=== PATIENT | female | born 1930 | race Caucasian/White ===

== ENCOUNTER → 2018-02-18 | Outpatient (CLI) | payer MEDICARE, OTHER ==
[2018-02-18 10:04] LABS: ABSOLUTE EOSINOPHILS # (AUTO) 0.2 10^3/uL (0.0-0.6); ABSOLUTE LYMPHOCYTES (AUTO) 1.5 10^3/uL (0.5-4.7); ABSOLUTE MONOCYTES (AUTO) 0.6 10^3/uL (0.1-1.4); ABSOLUTE NEUT (AUTO) 4.6 10^3/uL (1.7-8.2); BASOPHILS % (AUTO) 0.7 % (0-2); EOSINOPHILS % (AUTO) 3.6 % (0-6); HEMATOCRIT 39.5 % (36.0-47.0); HEMOGLOBIN 13.6 g/dL (12.0-15.5); MEAN CORPUSCULAR HEMOGLOBIN 31.5 pg (27.0-33.4); MEAN CORPUSCULAR HGB CONC 34.5 g/dL (32.0-36.0); MEAN CORPUSCULAR VOLUME 91 fl (80-97); MONOCYTES % (AUTO) 8.4 % (3-13); PLATELET COUNT 196 10^3/uL (150-450); RED BLOOD COUNT 4.33 10^6/uL (3.72-5.28); RED CELL DISTRIBUTION WIDTH 13.8 % (11.5-14.0); SEGMENTED NEUTROPHILS % (AUTO) 66.3 % (42-78); TOTAL CELLS COUNTED % (AUTO) 100 %; WHITE BLOOD COUNT 6.9 10^3/uL (4.0-10.5)
[2018-02-18 10:36] LABS: ALANINE AMINOTRANSFERASE 22 U/L (9-52); ALBUMIN 4.4 g/dL (3.5-5.0); ALKALINE PHOSPHATASE 47 U/L (38-126); ANION GAP 13 (5-19); ASPARTATE AMINO TRANSFERASE 23 U/L (14-36); BILIRUBIN,DIRECT 0.4 mg/dL (0.0-0.4); BILIRUBIN,TOTAL 0.7 mg/dL (0.2-1.3); BLOOD UREA NITROGEN 35 mg/dL (7-20); CALCIUM 10.9 mg/dL (8.4-10.2); CARBON DIOXIDE 29 mmol/L (22-30); CHLORIDE 98 mmol/L (98-107); GLUCOSE 99 mg/dL (75-110); POTASSIUM 4.3 mmol/L (3.6-5.0); SODIUM 140.3 mmol/L (137-145); TOTAL PROTEIN 7.3 g/dL (6.3-8.2)
== END ==
LOC: OD 08:52
PROVIDERS: ATTEND Family Medicine
DX: I10 Essential (primary) hypertension (principal); Z79.899 Other long term (current) drug therapy
CPT/HCPCS: 36415; 80053; 85025

== ENCOUNTER → 2018-09-21 | Outpatient (CLI) | payer MEDICARE, OTHER ==
[2018-09-21 09:45] LABS: ABSOLUTE BASOPHILS # (AUTO) 0.1 10^3/uL (0.0-0.2); ABSOLUTE EOSINOPHILS # (AUTO) 0.3 10^3/uL (0.0-0.6); ABSOLUTE LYMPHOCYTES (AUTO) 1.4 10^3/uL (0.5-4.7); ABSOLUTE MONOCYTES (AUTO) 0.7 10^3/uL (0.1-1.4); BASOPHILS % (AUTO) 0.7 % (0-2); EOSINOPHILS % (AUTO) 3.9 % (0-6); HEMATOCRIT 37.2 % (36.0-47.0); HEMOGLOBIN 12.4 g/dL (12.0-15.5); LYMPHOCYTES % (AUTO) 18.6 % (13-45); MEAN CORPUSCULAR HEMOGLOBIN 29.9 pg (27.0-33.4); MEAN CORPUSCULAR HGB CONC 33.4 g/dL (32.0-36.0); MEAN CORPUSCULAR VOLUME 90 fl (80-97); MONOCYTES % (AUTO) 9.2 % (3-13); PLATELET COUNT 214 10^3/uL (150-450); RED BLOOD COUNT 4.16 10^6/uL (3.72-5.28); RED CELL DISTRIBUTION WIDTH 14.7 % (11.5-14.0); SEGMENTED NEUTROPHILS % (AUTO) 67.6 % (42-78); TOTAL CELLS COUNTED % (AUTO) 100 %; WHITE BLOOD COUNT 7.4 10^3/uL (4.0-10.5)
[2018-09-21 09:58] LABS: ANION GAP 7 (5-19); BLOOD UREA NITROGEN 29 mg/dL (7-20); CARBON DIOXIDE 31 mmol/L (22-30); CHLORIDE 100 mmol/L (98-107); GLUCOSE 93 mg/dL (75-110); IRON(TIBC) 64.6 ug/dL (37-170); POTASSIUM 4.3 mmol/L (3.6-5.0); SODIUM 138.4 mmol/L (137-145)
== END ==
LOC: OD 08:30
PROVIDERS: ATTEND Family Medicine
DX: D62 Acute posthemorrhagic anemia (principal); R53.83 Other fatigue; I10 Essential (primary) hypertension
CPT/HCPCS: 36415; 80048; 82607; 82728; 83540; 83550; 85025

== ENCOUNTER → 2019-02-22 | Outpatient (CLI) | payer MEDICARE, OTHER ==
--- NOTE | 2019-02-22 15:27 | RADIOLOGY REPORT (SQ) ---
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 NUMBER OF VIEWS: Two views. TECHNIQUE: Two radiographic images acquired of the left tibia and fibula to include the knee and ank le in at least one projection. LIMITATIONS: None. FINDINGS: MINERALIZATION: Normal. BONES: No acute fracture or dislocation. No worrisome bone lesions. SOFT TISSUES: No obvious swelling or foreign body. OTHER: There is vascular calcification. IMPRESSION: Vascular calcification. No evidence of osteomyelitis. TECHNICAL DOCUMENTATION: JOB ID: [id number] [employer]- All Rights Reserved Reading location - IP/workstation name: [email or web address]
[2019-02-22 15:54] LABS: ABSOLUTE BASOPHILS # (AUTO) 0.1 10^3/uL (0.0-0.2); ABSOLUTE EOSINOPHILS # (AUTO) 0.2 10^3/uL (0.0-0.6); ABSOLUTE LYMPHOCYTES (AUTO) 1.5 10^3/uL (0.5-4.7); ABSOLUTE NEUT (AUTO) 6.4 10^3/uL (1.7-8.2); BASOPHILS % (AUTO) 0.8 % (0-2); HEMOGLOBIN 11.8 g/dL (12.0-15.5); LYMPHOCYTES % (AUTO) 16.4 % (13-45); MEAN CORPUSCULAR HEMOGLOBIN 29.5 pg (27.0-33.4); MEAN CORPUSCULAR HGB CONC 33.8 g/dL (32.0-36.0); MEAN CORPUSCULAR VOLUME 87 fl (80-97); MONOCYTES % (AUTO) 11.3 % (3-13); PLATELET COUNT 250 10^3/uL (150-450); RED BLOOD COUNT 4.01 10^6/uL (3.72-5.28); RED CELL DISTRIBUTION WIDTH 13.3 % (11.5-14.0); SEGMENTED NEUTROPHILS % (AUTO) 69.5 % (42-78); TOTAL CELLS COUNTED % (AUTO) 100 %; WHITE BLOOD COUNT 9.2 10^3/uL (4.0-10.5)
[2019-02-22 16:41] LABS: ALKALINE PHOSPHATASE 59 U/L (38-126); ANION GAP 12 (5-19); ASPARTATE AMINO TRANSFERASE 26 U/L (14-36); BILIRUBIN,DIRECT 0.1 mg/dL (0.0-0.4); BILIRUBIN,TOTAL 0.3 mg/dL (0.2-1.3); BLOOD UREA NITROGEN 33 mg/dL (7-20); C-REACTIVE PROTEIN 8.5 mg/L (<10.0); CALCIUM 9.7 mg/dL (8.4-10.2); CARBON DIOXIDE 29 mmol/L (22-30); CHLORIDE 94 mmol/L (98-107); GLUCOSE 109 mg/dL (75-110); POTASSIUM 3.7 mmol/L (3.6-5.0)
[2019-02-22 16:48] LABS: ERYTHROCYTE SEDIMENTATION RATE 14 mm/hr (0-30)
== END ==
LOC: WC 14:56
PROVIDERS: ATTEND Nurse Practitioner Family
DX: L97.222 Non-pressure chronic ulcer of left calf with fat layer exposed (principal)
CPT/HCPCS: 36415; 80053; 85025; 85652; 86140

== ENCOUNTER → 2019-02-24 | Outpatient (CLI) | payer MEDICARE, OTHER ==
--- NOTE | 2019-02-25 16:19 | XCELERA REPORT ---
[address] [place] [address] Lower Extremity Arterial Evaluation Name: HORTENSIA RUBIO V Age: 89 yrs Gender: Female : 1930 Patient Status: Outpatient Patient Location: [facility] Study Date: 02/24/2019 11:35 AM Procedure: A color flow and duplex scan of the lower extremity arteries was performed bilaterally with velocity and waveform anaylsis. Ankle brachial indicies performed. 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 Biphasic with low velocity in the Popliteal and infrageniculate arteries. Flow reversal in the Anterior Tibial. Ankle Brachial index 1.16. Left Side Arterial Evaluation Normal velocity and biphasic waveforms noted from the Common Femoral artery to the Popliteal artery . Biphasic with low velocity in the infrageniculate arteries. Study done around bandaging Ankle Brachial index could not be done due to bandaging. Interpretation Summary Moderate hemodynamically significant lesions in the bilateral lower extremities, on duplex imaging, at rest. Duplex findings of significant disease from the Femoral down with suspicion of obstruction, collateral flow in the Anterior Tibial artery. On the left, significant inflow disease, with sequential changes at the infrageniculate level. BRUCE on the left is normal, suggesting no significant obstructive disease, this is discordant with the duplex findings. BRUCE's not done the left, because of bandaging. : [facility] > David Chi
== END ==
LOC: SP 10:55
PROVIDERS: ATTEND Nurse Practitioner Family
DX: L97.222 Non-pressure chronic ulcer of left calf with fat layer exposed (principal)
CPT/HCPCS: 93922; 93925

== ENCOUNTER 2019-03-04 14:16 | Inpatient (IN) | payer MEDICARE, OTHER ==
[2019-03-04] MEDS ORDERED: VANCOMYCIN HCL INJ 1000 MG VIAL IV ONE (15:42)
[2019-03-04] MEDS ORDERED: CEFTRIAXONE 1 GM/D5W RTU 1 GM/50 ML RTUPB IV ONE (15:42)
--- NOTE | 2019-03-04 15:45 | ER Document Report ---
ED Medical Screen (RME) - General Stated Complaint: LEFT LEG PAIN/INJURY Time Seen by Provider: 03/04/19 15:42 Primary Care Provider: [facility] TEA BLENDER, TEA BLENDER [Primary Care Provider] - Follow up as needed TRAVEL OUTSIDE OF THE [place] IN LAST 30 DAYS: No - HPI Notes: 03/04/19 15:43 Patient is an 89-year-old female with history of hypertension who presents complaining of ongoing pain and discomfort at a chronic wound to her left anterior lower leg that is been present for 2 months. Patient has been seeing the wound clinic who is going to refer her back to the surgical center. Her family doctor saw it today and the wound has not been improving so they sent her here for IV antibiotics and evaluation. Patient states that she continues to have pain and redness to the area. Patient states that they did a Doppler for blood clots about a week ago which was unremarkable. She is otherwise able to eat and drink without difficulty. No fever. I have treated and performed a rapid initial assessment of this patient. A comprehensive ED assessment and evaluation of the patient, analysis of test results and completion of medical decision making process will be conducted by additional ED providers. PHYSICAL EXAMINATION: GENERAL: Well-appearing, well-nourished and in no acute distress. A&Ox4. Answers questions appropriately. Left lower extremity: There is an open wound to the left lower extremity a nteriorly with surrounding erythema and tenderness as well as trace edema. 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
--- NOTE | 2019-03-04 16:33 | RADIOLOGY REPORT (SQ) ---
EXAM DESCRIPTION: TIBIA FIBULA LEFT COMPLETED DATE/TIME: 03/04/2019 4:24 pm REASON FOR STUDY: LLE wound, eval ?osteo to anterior lower leg COMPARISON: None. NUMBER OF VIEWS: Two views. TECHNIQUE: Two radiographic images acquired of the left tibia and fibula to include the knee and ank le in at least one projection. LIMITATIONS: None. FINDINGS: MINERALIZATION: Normal. BONES: No acute fracture or dislocation. No worrisome bone lesions. Postsurgical changes involving the patella. This is stable from prior study. SOFT TISSUES: No obvious swelling or foreign body. OTHER: No other significant finding. IMPRESSION: No acute findings. TECHNICAL DOCUMENTATION: JOB ID: [id number] [employer]- All Rights Reserved Reading location - IP/workstation name: [email or web address]
[2019-03-04 16:47] LABS: ABSOLUTE BASOPHILS # (AUTO) 0.1 10^3/uL (0.0-0.2); ABSOLUTE EOSINOPHILS # (AUTO) 0.2 10^3/uL (0.0-0.6); ABSOLUTE LYMPHOCYTES (AUTO) 1.6 10^3/uL (0.5-4.7); ABSOLUTE MONOCYTES (AUTO) 0.9 10^3/uL (0.1-1.4); ABSOLUTE NEUT (AUTO) 6.1 10^3/uL (1.7-8.2); BASOPHILS % (AUTO) 0.6 % (0-2); EOSINOPHILS % (AUTO) 1.8 % (0-6); HEMATOCRIT 34.8 % (36.0-47.0); HEMOGLOBIN 11.7 g/dL (12.0-15.5); LYMPHOCYTES % (AUTO) 18.1 % (13-45); MEAN CORPUSCULAR HEMOGLOBIN 29.3 pg (27.0-33.4); MEAN CORPUSCULAR HGB CONC 33.6 g/dL (32.0-36.0); MEAN CORPUSCULAR VOLUME 87 fl (80-97); MONOCYTES % (AUTO) 9.8 % (3-13); PLATELET COUNT 268 10^3/uL (150-450); RED BLOOD COUNT 3.98 10^6/uL (3.72-5.28); RED CELL DISTRIBUTION WIDTH 13.5 % (11.5-14.0); SEGMENTED NEUTROPHILS % (AUTO) 69.7 % (42-78); TOTAL CELLS COUNTED % (AUTO) 100 %; WHITE BLOOD COUNT 8.8 10^3/uL (4.0-10.5)
[2019-03-04 17:08] LABS: ALKALINE PHOSPHATASE 61 U/L (38-126); ASPARTATE AMINO TRANSFERASE 27 U/L (14-36); BILIRUBIN,DIRECT 0.1 mg/dL (0.0-0.4); BILIRUBIN,TOTAL 0.3 mg/dL (0.2-1.3); BLOOD UREA NITROGEN 25 mg/dL (7-20); CALCIUM 10.5 mg/dL (8.4-10.2); CARBON DIOXIDE 29 mmol/L (22-30); CHLORIDE 89 mmol/L (98-107); GLUCOSE 129 mg/dL (75-110); POTASSIUM 3.7 mmol/L (3.6-5.0); TOTAL PROTEIN 7.1 g/dL (6.3-8.2)
[2019-03-04 17:10] LABS: ANION GAP 13 (5-19)
[2019-03-04] MEDS ORDERED: MORPHINE SULFATE 10 MG/ML INJ IV ONE (18:36)
[2019-03-04] MEDS ORDERED: ONDANSETRON HCL INJ/PF 4 MG/2 ML SDV IV ONE (18:37)
--- NOTE | 2019-03-04 18:41 | ER Document Report ---
Entered by LALO ROTH SCRIBE 03/04/19 1811 Acting as scribe for:URBANO ISABEL IV, MD ED Wound - General Chief Complaint: Wound Infection Stated Complaint: LEFT LEG PAIN/INJURY Time Seen by Provider: 03/04/19 15:42 Primary Care Provider: [facility] NP, ROPEMAN [NURSE PRACTITIONER] - Follow up as needed Mode of Arrival: Ambulatory Information source: Patient Notes: This 89 year old female patient presents to the emergency department today with complaints of a wound to her left lower extremity. Patient states this wound has been present since December and she has been followed by surgery and wound care. Patient states today she saw her PCP who has not seen the wound for the last two weeks. Patient states her PCP in [facility] told her that "that looks much worse, go get IV ceftriaxone and vancomycin at the nearest hospital". TRAVEL OUTSIDE OF THE [place] IN LAST 30 DAYS: No - Related Data Allergies/Adverse Reactions: codeine Allergy (Verified 09/21/18 16:19) Penicillins Allergy (Verified 09/21/18 16:19) streptomycin Allergy (Verified 09/21/18 16:19) Sulfa (Sulfonamide Antibiotics) Allergy (Verified 03/04/19 15:36) ciprofloxacin [From Cipro] Adverse Reaction (Verified 09/21/18 16:19) Past Medical History - General Information source: Patient - Social History Smoking Status: Never Smoker Cigarette use (# per day): No Chew tobacco use (# tins/day): No Frequency of alcohol use: None Drug Abuse: None Lives with: Alone Family History: Reviewed & Not Pertinent, CAD Patient has suicidal ideation: No Patient has homicidal ideation: No - Past Medical History Cardiac Medical History: Reports: Hx Hypertension Past Surgical History: Reports: Hx Appendectomy, Other - 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 Review of Systems - Review of Systems Constitutional: denies: Fever EENT: No symptoms reported Cardiovascular: No symptoms reported Respiratory: No symptoms reported Gastrointestinal: No symptoms reported Genitourinary: No symptoms reported Female Genitourinary: No symptoms reported Musculoskeletal: No symptoms reported Skin: See HPI, Other - wound LLE Hematologic/Lymphatic: No symptoms reported Neurological/Psychological: No symptoms reported -: Yes All other systems reviewed and negative Physical Exam - Vital signs Vitals: Temp Pulse Resp BP Pulse Ox 98.0 F 65 20 171/71 H 99 12/13/19 14:23 03/04/19 14:23 03/04/19 14:23 03/04/19 14:23 03/04/19 14:23 - Notes Notes: Physical Exam: General: Alert, appears well. HEENT: Normocephalic. Atraumatic. PERRL. Extraocular movements intact. Oropharynx clear. Neck: Supple. Non-tender. Respiratory: No respiratory distress. Clear and equal breath sounds bilaterally. Cardiovascular: Regular rate and rhythm. Abdominal: Normal Inspection. Non-tender. No distension. Normal Bowel Sounds. Back: No gross abnormalities. Extremities: Moves all four extremities. Upper extremities: Normal inspection. Normal ROM. Lower extremities: See skin Neurological: Normal cognition. AAOx4. Normal speech. Psychological: Normal affect. Normal Mood. Skin: Chronic wound to left lower extremity with surrounding erythema consistent with cellulitis. Purulent discharge coming from wound. Good granulation tissue surrounding ulceration. Course - Vital Signs Vital signs: Temp Pulse Resp BP Pulse Ox 98.0 F 65 20 171/71 H 99 03/04/19 15:37 03/04/19 14:23 03/04/19 15:37 03/04/19 14:23 03/04/19 15:37 - Laboratory Result Diagrams: 03/04/19 16:20 03/04/19 16:20 Laboratory results interpreted by me: 03/04/19 03/04/19 16:20 16:20 Hgb 11.7 L Hct 34.8 L Sodium 130.5 L Chloride 89 L BUN 25 H Est GFR (MDRD) Non-Af 58 L Glucose 129 H Calcium 10.5 H - Consults DR. HYMAN Time consulted: 18:25 Reason for consultation: 03/04/19 18:50 LEFT LOWER EXTREMITY WOUND Consulted provider: will come to ER - Dr. Hyman recommended admitting the patient to the medical service for treatment of cellulitis with IV antibiotic therapy; he will consult on the patient's wound CHELY MCDOWELL Time consulted: 18:35 Reason for consultation: 03/04/19 18:53 CELLULITIS REQUIRING IV ANTIBIOTICS Consulted provider: will come to ER Discharge - Discharge Clinical Impression: Cellulitis Qualifiers: Site of cellulitis: extremity Site of cellulitis of extremity: lower extremity Laterality: left Qualified Code(s): L03.116 - Cellulitis of left lower limb Condition: Good Disposition: ADMITTED INPATIENT Admitting Provider: Lee (Hospitalist) Unit Admitted: Medical Floor Referrals: [facility] ROPEMAN, ROPEMAN [NURSE PRACTITIONER] - Follow up as needed I personally performed the services described in the documentation, reviewed and edited the documentation which was dictated to the scribe in my presence, and it accurately records my words and actions.
[2019-03-04] MEDS ORDERED: OXYCODONE-ACETAMINOPHEN 5-325 MG TABLET PO PRN (18:51)
[2019-03-04] MEDS ORDERED: ONDANSETRON 4 MG TAB.RAPDIS PO PRN (18:51)
[2019-03-04] MEDS ORDERED: ONDANSETRON HCL INJ/PF 4 MG/2 ML SDV IV PRN (18:51)
[2019-03-04] MEDS ORDERED: HYDROCODONE/ACETAMINOPHEN 5-325 MG TABLET PO PRN (18:58)
[2019-03-04] MEDS ORDERED: VANCOMYCIN HCL 0 MG in DEXTROSE 5%-WATER 250 ML IV NR (19:00)
--- NOTE | 2019-03-04 19:04 | PDOC H&P ---
History of Present Illness History of Present Illness: HORTENSIA RUBIO is a 89 year old female asked me 2 months ago had a stick from her yard strike her in the left lower leg. Since then she has had a wound on the left lower leg and she has been going from her primary care doctor to the wound clinic with no resolution of her apparent infection. Tonight in the emergency room she comes in with what appears to be a cellulitis secondary to open wound. Patient has been seen by general surgery and they advised that the patient come in for IV antibiotics and wound care. 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 Social History Lives with: Alone Smoking Status: Never Smoker Electronic Cigarette use?: No Frequency of Alcohol Use: None Hx Recreational Drug Use: No Drugs: None Hx Prescription Drug Abuse: No - Advance Directive Resuscitation Status: Full Code Family History Family History: Reviewed & Not Pertinent, CAD Parental Family History Reviewed: No Children Family History Reviewed: No Sibling(s) Family History Reviewed.: No Medication/Allergy Home Medications: Ca Citrate/Mgox/Vit D3/B6/Min [Citracal Plus Tablet] 2 tab PO DAILY 07/20/18 Losartan/Hydrochlorothiazide [Losartan-Hctz 100-25 mg Tab] 1 each PO DAILY 07/20/18 Metoprolol Succinate 100 mg PO BID 07/20/18 Raloxifene HCl [Evista 60 mg Tablet] 60 mg PO DAILY 07/20/18 Aspirin [Ecotrin 81 mg EC Tablet] 81 mg PO DAILY tabec 07/25/18 Benzocaine/Menthol [Chloraseptic Sore Throat Lozenge] 1 each BUCCAL Q4HP PRN lozenge 07/25/18 Docusate Sodium [Colace 100 mg Capsule] 100 mg PO BID capsule 07/25/18 Hydrocodone/Acetaminophen [[place] 5-325 mg Tablet] 1 tab PO Q6HP PRN #5 tablet 07/25/18 Allergies/Adverse Reactions: codeine Allergy (Verified 09/21/18 16:19) Penicillins Allergy (Verified 09/21/18 16:19) streptomycin Allergy (Verified 09/21/18 16:19) Sulfa (Sulfonamide Antibiotics) Allergy (Verified 03/04/19 15:36) ciprofloxacin [From Cipro] Adverse Reaction (Verified 09/21/18 16:19) Review of Systems Constitutional: ABSENT: chills, fever(s), headache(s), weight gain, weight loss Cardiovascular: ABSENT: chest pain, dyspnea on exertion, edema, orthropnea, palpitations Respiratory: ABSENT: cough, hemoptysis Integumentary: PRESENT: erythema, wounds, other - Ended from a left lower leg wound Physical Exam Vital Signs: Temp Pulse Resp BP Pulse Ox 98.0 F 65 20 171/71 H 99 03/04/19 15:37 03/04/19 14:23 03/04/19 15:37 03/04/19 14:23 03/04/19 15:37 Intake & Output 03/03/19 03/04/19 03/05/19 06:59 06:59 06:59 Intake Total 50 Balance 50 Weight 58.06 kg General appearance: PRESENT: no acute distress, well-developed, well-nourished, other - She is very pleasant and a good historian Respiratory exam: PRESENT: clear to auscultation ellen. ABSENT: rales, rhonchi, wheezes Cardiovascular exam: PRESENT: RRR. ABSENT: diastolic murmur, rubs, systolic murmur Neurological exam: PRESENT: alert, awake, oriented to person, oriented to place, oriented to time, oriented to situation, CN II-XII grossly intact. ABSENT: motor sensory deficit Psychiatric exam: PRESENT: appropriate affect, normal mood. ABSENT: homicidal ideation, suicidal ideation Results Laboratory Results: 03/04/19 16:20 03/04/19 16:20 03/04/19 03/04/19 16:20 16:20 WBC 8.8 RBC 3.98 Hgb 11.7 L Hct 34.8 L MCV 87 MCH 29.3 MCHC 33.6 RDW 13.5 Plt Count 268 Seg Neutrophils % 69.7 Sodium 130.5 L Potassium 3.7 Chloride 89 L Carbon Dioxide 29 Anion Gap 13 BUN 25 H Creatinine 0.92 Est GFR ( Amer) > 60 Glucose 129 H Calcium 10.5 H Total Bilirubin 0.3 AST 27 Alkaline Phosphatase 61 Total Protein 7.1 Albumin 4.0 Impressions: Tibia/Fibula X-Ray 03/04/19 15:45 IMPRESSION: No acute findings. Assessment and Plan - Diagnosis (1) Cellulitis Qualifiers: Site of cellulitis: extremity Site of cellulitis of extremity: lower extremity Laterality: left Qualified Code(s): L03.116 - Cellulitis of left lower limb Is this a current diagnosis for this admission?: Yes (2) Hypertension Qualifiers: Is this a current diagnosis for this admission?: Yes - Plan Summary Summary: 03/04/2019 patient will be admitted to the hospital for wound care of her left lower leg. He has apparent cellulitis from an 8-week-old infection. Patient's only other comorbidity according to her is hypertension. Patient has been seen by general surgery and wound care will be addressed by general surgery. Will be treated with IV antibiotics - Time Time Spent with patient: 35 or more minutes
[2019-03-04 19:31] LABS: INTERNATIONAL RATION (INR) 0.93; PROTHROMBIN TIME 12.5 SEC (11.4-15.4)
--- NOTE | 2019-03-04 19:35 | PDOC CONSULTATION ---
Consultation Consult Date: 03/04/19 Provider Consulted: IAN HYMAN Consult reason:: Severe pains and erythema along the left anterior kilpatrick History of Present Illness Admission Date/PCP: 03/04/19 19:20 History of Present Illness: HORTENSIA RUBIO is a 89 year old female who injured her left anterior kilpatrick area in January 04 when branch of wine hit her at this area when she accidentally stepped on it. This is been ongoing on with persistent pains in is being followed at the wound care center. Today her pains got worst and erythema also was more noticeable. She claims she was evaluated at the wound care center for vascular evaluation and she was noted to have good arterial blood flows. Her last visit at the wound care center was about 3 days ago. She did see her primary physician today after driving 1-1/2 hours away to see him and was told that she needs to go to the emergency room to be given IV antibiotics. 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 Social History Lives with: Alone Smoking Status: Never Smoker Electronic Cigarette use?: No Frequency of Alcohol Use: None Hx Recreational Drug Use: No Drugs: None Hx Prescription Drug Abuse: No - Advance Directive Resuscitation Status: Full Code Family History Family History: Reviewed & Not Pertinent, CAD Parental Family History Reviewed: Yes Children Family History Reviewed: No Sibling(s) Family History Reviewed.: No Medication/Allergy Home Medications: Ca Citrate/Mgox/Vit D3/B6/Min [Citracal Plus Tablet] 2 tab PO DAILY 07/20/18 Losartan/Hydrochlorothiazide [Losartan-Hctz 100-25 mg Tab] 1 each PO DAILY 07/20/18 Metoprolol Succinate 100 mg PO BID 07/20/18 Raloxifene HCl [Evista 60 mg Tablet] 60 mg PO DAILY 07/20/18 Aspirin [Ecotrin 81 mg EC Tablet] 81 mg PO DAILY tabec 07/25/18 Benzocaine/Menthol [Chloraseptic Sore Throat Lozenge] 1 each BUCCAL Q4HP PRN lozenge 07/25/18 Docusate Sodium [Colace 100 mg Capsule] 100 mg PO BID capsule 07/25/18 Hydrocodone/Acetaminophen [[place] 5-325 mg Tablet] 1 tab PO Q6HP PRN #5 tablet 07/25/18 Allergies/Adverse Reactions: codeine Allergy (Verified 09/21/18 16:19) Penicillins Allergy (Verified 09/21/18 16:19) streptomycin Allergy (Verified 09/21/18 16:19) Sulfa (Sulfonamide Antibiotics) Allergy (Verified 03/04/19 15:36) ciprofloxacin [From Cipro] Adverse Reaction (Verified 09/21/18 16:19) Review of Systems Constitutional: PRESENT: as per HPI, other - Denies fever nor chills Respiratory: PRESENT: other - No chest pains nor cough Gastrointestinal: PRESENT: other - No abdominal pains Musculoskeletal: PRESENT: other - Pains along the left anterior kilpatrick just above the ankle Physical Exam Vital Signs: Temp Pulse Resp BP Pulse Ox 98.0 F 65 20 171/71 H 99 03/04/19 15:37 03/04/19 14:23 03/04/19 15:37 03/04/19 14:23 03/04/19 15:37 Intake & Output 03/03/19 03/04/19 03/05/19 06:59 06:59 06:59 Intake Total 50 Balance 50 Weight 58.06 kg General appearance: PRESENT: severe distress Head exam: PRESENT: atraumatic Eye exam: PRESENT: conjunctival injection Mouth exam: PRESENT: moist Neck exam: PRESENT: full ROM Respiratory exam: PRESENT: clear to auscultation ellen Cardiovascular exam: PRESENT: RRR Pulses: PRESENT: normal radial pulses Vascular exam: PRESENT: normal capillary refill Extremities exam: PRESENT: other - Has an area of superficial ulceration along the left anterior kilpatrick roughly about 5 to 6 cm in diameter with minimal necrotic tissue but extensive erythema. Unable to palpate left ankle pulses but the foot is warm. Neurological exam: PRESENT: alert, oriented to person, oriented to place, oriented to time, oriented to situation Psychiatric exam: PRESENT: appropriate affect Skin exam: PRESENT: erythema - Left anterior kilpatrick surrounding superficial ulceration, warm Results Laboratory Results: 03/04/19 16:20 03/04/19 16:20 03/04/19 03/04/19 16:20 16:20 WBC 8.8 RBC 3.98 Hgb 11.7 L Hct 34.8 L MCV 87 MCH 29.3 MCHC 33.6 RDW 13.5 Plt Count 268 Seg Neutrophils % 69.7 Sodium 130.5 L Potassium 3.7 Chloride 89 L Carbon Dioxide 29 Anion Gap 13 BUN 25 H Creatinine 0.92 Est GFR ( Amer) > 60 Glucose 129 H Calcium 10.5 H Total Bilirubin 0.3 AST 27 Alkaline Phosphatase 61 Total Protein 7.1 Albumin 4.0 Impressions: Tibia/Fibula X-Ray 03/04/19 15:45 IMPRESSION: No acute findings. Assessment & Plan - Diagnosis (1) Superficial ulceration left anterior elpidio Is this a current diagnosis for this admission?: Yes (2) Cellulitis Qualifiers: Site of cellulitis: extremity Site of cellulitis of extremity: lower extremity Laterality: left Qualified Code(s): L03.116 - Cellulitis of left lower limb Is this a current diagnosis for this admission?: Yes - Time Time Spent: 30 to 50 Minutes - Inpatient Certification Medical Necessity: Need For IV Fluids, Need for Pain Control, Need for IV Antibiotics - Plan Summary Plan Summary: 83-year-old female with traumatic superficial ulceration of the left anterior kilpatrick since January 04, 2019. She is being followed at the wound care center and vascular evaluation apparently was normal. Unfortunately patient complaining of more severe pains today and seen her primary physician who sent her to the ED for IV antibiotic therapy. There is evidence of cellulitis around superficial ulceration along the left anterior kilpatrick. Plans: Start IV vancomycin Apply wet-to-dry dressing over the left anterior kilpatrick ulcer every 24 hours We will follow-up the patient on a as needed basis We will need follow-up at the wound care center once the cellulitis has improved
[2019-03-05] MEDS: NORMAL SALINE 1000 ML 1,000 ML IV PRN ×2 (00:17→20:09)
[2019-03-05 05:08] LABS: ABSOLUTE BASOPHILS # (AUTO) 0.1 10^3/uL (0.0-0.2); ABSOLUTE EOSINOPHILS # (AUTO) 0.3 10^3/uL (0.0-0.6); ABSOLUTE LYMPHOCYTES (AUTO) 1.6 10^3/uL (0.5-4.7); BASOPHILS % (AUTO) 0.8 % (0-2); EOSINOPHILS % (AUTO) 3.7 % (0-6); HEMATOCRIT 34.4 % (36.0-47.0); HEMOGLOBIN 11.4 g/dL (12.0-15.5); LYMPHOCYTES % (AUTO) 20.2 % (13-45); MEAN CORPUSCULAR HGB CONC 33.3 g/dL (32.0-36.0); MEAN CORPUSCULAR VOLUME 87 fl (80-97); MONOCYTES % (AUTO) 12.5 % (3-13); PLATELET COUNT 220 10^3/uL (150-450); RED BLOOD COUNT 3.94 10^6/uL (3.72-5.28); RED CELL DISTRIBUTION WIDTH 13.6 % (11.5-14.0); SEGMENTED NEUTROPHILS % (AUTO) 62.8 % (42-78); TOTAL CELLS COUNTED % (AUTO) 100 %
[2019-03-05 05:27] LABS: ANION GAP 10 (5-19); BLOOD UREA NITROGEN 22 mg/dL (7-20); CALCIUM 9.1 mg/dL (8.4-10.2); CARBON DIOXIDE 28 mmol/L (22-30); CHLORIDE 98 mmol/L (98-107); GLUCOSE 80 mg/dL (75-110); PHOSPHORUS 4.5 mg/dL (2.5-4.5); POTASSIUM 4.2 mmol/L (3.6-5.0)
[2019-03-05] MEDS: ENOXAPARIN SODIUM INJ 30 MG/0.3 ML DISP.SYRIN SUBCUT SCH (11:05)
[2019-03-05] MEDS ORDERED: (PENDING PHARMACY ID) (Sulindac [Sulindac] 150 MG) PO PRN (12:24)
--- NOTE | 2019-03-05 12:24 | PDOC PROGRESS REPORT ---
Subjective Progress Note for:: 03/05/19 Reason For Visit: LEFT LEG PAIN/INJURY 03/05/2019 Cellulitis left leg Physical Exam Vital Signs: Temp Pulse Resp BP Pulse Ox 98.3 F 68 16 159/84 H 99 03/05/19 07:23 03/05/19 07:23 03/05/19 07:23 03/05/19 07:23 03/05/19 07:23 Intake & Output 03/04/19 03/05/19 03/06/19 06:59 06:59 06:59 Intake Total 50 Balance 50 Weight 58.9 kg General appearance: PRESENT: no acute distress, other - Patient is up and ambulatory when I walked in the room Respiratory exam: PRESENT: clear to auscultation ellen. ABSENT: rales, rhonchi, wheezes Cardiovascular exam: PRESENT: RRR. ABSENT: diastolic murmur, rubs, systolic murmur Extremities exam: PRESENT: other - No edema still slight redness. Basically unchanged from last night in the ED. patient's leg is wrapped with a Kerlix Neurological exam: PRESENT: alert, awake, oriented to person, oriented to place, oriented to time, oriented to situation, CN II-XII grossly intact. ABSENT: motor sensory deficit Psychiatric exam: PRESENT: appropriate affect, normal mood. ABSENT: homicidal ideation, suicidal ideation Results Laboratory Results: 03/05/19 04:46 03/05/19 04:46 03/04/19 03/04/19 03/05/19 16:20 16:20 04:46 WBC 8.8 8.0 RBC 3.98 3.94 Hgb 11.7 L 11.4 L Hct 34.8 L 34.4 L MCV 87 87 MCH 29.3 29.0 MCHC 33.6 33.3 RDW 13.5 13.6 Plt Count 268 220 Seg Neutrophils % 69.7 62.8 Sodium 130.5 L Potassium 3.7 Chloride 89 L Carbon Dioxide 29 Anion Gap 13 BUN 25 H Creatinine 0.92 Est GFR ( Amer) > 60 Glucose 129 H Calcium 10.5 H Phosphorus Magnesium Total Bilirubin 0.3 AST 27 Alkaline Phosphatase 61 Total Protein 7.1 Albumin 4.0 03/05/19 04:46 WBC RBC Hgb Hct MCV MCH MCHC RDW Plt Count Seg Neutrophils % Sodium 135.6 L Potassium 4.2 Chloride 98 Carbon Dioxide 28 Anion Gap 10 BUN 22 H Creatinine 0.97 Est GFR ( Amer) > 60 Glucose 80 Calcium 9.1 Phosphorus 4.5 Magnesium 1.9 Total Bilirubin AST Alkaline Phosphatase Total Protein Albumin Impressions: Tibia/Fibula X-Ray 03/04/19 15:45 IMPRESSION: No acute findings. Assessment and Plan - Diagnosis (1) Cellulitis Qualifiers: Site of cellulitis: extremity Site of cellulitis of extremity: lower extremity Laterality: left Qualified Code(s): L03.116 - Cellulitis of left lower limb Is this a current diagnosis for this admission?: Yes (2) Hypertension Qualifiers: Is this a current diagnosis for this admission?: Yes - Plan Summary Summary: 03/04/2019 patient will be admitted to the hospital for wound care of her left lower leg. He has apparent cellulitis from an 8-week-old infection. Patient's only other comorbidity according to her is hypertension. Patient has been seen by general surgery and wound care will be addressed by general surgery. Will be treated with IV antibiotics 03/05/2019 Temperature 97 6 pulse 58 blood pressure slightly elevated 158/70 and 171/71 O2 sat 97% on room air wbcs 8000 Patient is up and ambulatory in the room We will continue IV vancomycin. Suspect it will take 72 hours to make a change Continue wound dressings as outlined by general surgery We will resume home meds - Time Time Spent with patient: 15-24 minutes
[2019-03-05] MEDS ORDERED: (PENDING PHARMACY ID) (Metoprolol Succinate [Toprol Xl 100 Mg Tablet] 200 MG) PO SCH (12:30)
[2019-03-05] MEDS ORDERED: (PENDING PHARMACY ID) (Losartan/Hydrochlorothiazide [Hyzaar 100-25 Tablet] 1 TAB) PO SCH (12:30)
[2019-03-05] MEDS ORDERED: HYDROCHLOROTHIAZIDE 25 MG TABLET PO SCH (14:00)
[2019-03-05] MEDS ORDERED: LOSARTAN POTASSIUM 50 MG TABLET PO SCH (14:00)
[2019-03-05] MEDS ORDERED: METOPROLOL SUCCINATE 50 MG TAB.SR.24H PO SCH (14:00)
[2019-03-05] MEDS: ACETAMINOPHEN 325 MG TABLET PO PRN (17:53)
[2019-03-05] MEDS: VANCOMYCIN HCL 750 MG in DEXTROSE 5%-WATER 250 ML IV SCH (17:53)
[2019-03-05] MEDS: LOSARTAN POTASSIUM 50 MG TABLET PO SCH (21:50)
[2019-03-05] MEDS: METOPROLOL SUCCINATE 50 MG TAB.SR.24H PO SCH (21:52)
[2019-03-05] MEDS ORDERED: HYDROCHLOROTHIAZIDE 12.5 MG TABLET PO SCH (22:00)
[2019-03-06] MEDS ORDERED: GLUCAGON,HUMAN RECOMB 1 MG INJ SUBCUT PRN (08:39)
[2019-03-06] MEDS ORDERED: DEXTROSE 50%-WATER 25 GM/50 ML DISP.SYRIN IV PRN ×2 (08:39)
[2019-03-06] MEDS ORDERED: DEXTROSE 40% GEL 15 GM TUBE PO PRN ×2 (08:39)
[2019-03-06] MEDS: ACETAMINOPHEN 325 MG TABLET PO PRN (08:57)
[2019-03-06] MEDS ORDERED: VIT D3 PO SCH (10:00)
[2019-03-06] MEDS ORDERED: MGOX PO SCH (10:00)
[2019-03-06] MEDS ORDERED: CA CITRATE PO SCH (10:00)
[2019-03-06] MEDS ORDERED: [UNRECOGNIZED DRUG - OTHER] PO SCH (10:00)
[2019-03-06] MEDS ORDERED: B6 PO SCH (10:00)
--- NOTE | 2019-03-06 11:41 | PDOC PROGRESS REPORT ---
Subjective Progress Note for:: 03/06/19 Reason For Visit: LEFT LEG PAIN/INJURY 03/06/2019 Cellulitis of the left lower extremity Physical Exam Vital Signs: Temp Pulse Resp BP Pulse Ox 98.3 F 54 L 16 160/69 H 100 03/06/19 08:35 03/06/19 08:35 03/06/19 08:35 03/06/19 08:35 03/06/19 08:35 Intake & Output 03/05/19 03/06/19 03/07/19 06:59 06:59 06:59 Intake Total 50 2470 Balance 50 2470 Weight 58.9 kg 60 kg General appearance: PRESENT: no acute distress Respiratory exam: PRESENT: clear to auscultation ellen. ABSENT: rales, rhonchi, wheezes Cardiovascular exam: PRESENT: RRR. ABSENT: diastolic murmur, rubs, systolic murmur Extremities exam: PRESENT: tenderness, other - No peripheral edema however she does have tenderness around the ulcer left lower leg, significantly less redness around the ulcer, no foul odor Neurological exam: PRESENT: alert, awake, oriented to person, oriented to place, oriented to time, oriented to situation, CN II-XII grossly intact. ABSENT: motor sensory deficit Psychiatric exam: PRESENT: appropriate affect, normal mood. ABSENT: homicidal ideation, suicidal ideation Results Laboratory Results: 03/05/19 04:46 03/05/19 04:46 03/04/19 19:55 Leg - Left Cellulitis Gram Stain - Final Impressions: Tibia/Fibula X-Ray 03/04/19 15:45 IMPRESSION: No acute findings. Assessment and Plan - Diagnosis (1) Cellulitis Qualifiers: Site of cellulitis: extremity Site of cellulitis of extremity: lower extremity Laterality: left Qualified Code(s): L03.116 - Cellulitis of left lower limb Is this a current diagnosis for this admission?: Yes (2) Hypertension Qualifiers: Is this a current diagnosis for this admission?: Yes - Plan Summary Summary: 03/04/2019 patient will be admitted to the hospital for wound care of her left lower leg. He has apparent cellulitis from an 8-week-old infection. Patient's only other comorbidity according to her is hypertension. Patient has been seen by general surgery and wound care will be addressed by general surgery. Will be treated with IV antibiotics 03/05/2019 Temperature 97 6 pulse 58 blood pressure slightly elevated 158/70 and 171/71 O2 sat 97% on room air wbcs 8000 Patient is up and ambulatory in the room We will continue IV vancomycin. Suspect it will take 72 hours to make a change Continue wound dressings as outlined by general surgery We will resume home meds 03/06/2019 There is a discrepancy with her home medications, patient is denying taking hydrochlorothiazide. Patient states that she takes her Toprol every 12 hours and not once daily Patient is currently on IV vancomycin for her cellulitis which appears to be improving. Wound culture is growing both gram-negative rods and gram-positive cocci, blood cultures are negative x24 hours Day 3 of IV vancomycin May be able to switch over to p.o. antibiotics tomorrow and possibly discharge. Lives alone at home - Time Time Spent with patient: 25-34 minutes
[2019-03-06] MEDS: ENOXAPARIN SODIUM INJ 30 MG/0.3 ML DISP.SYRIN SUBCUT SCH (12:04)
[2019-03-06] MEDS: RALOXIFENE HCL 60 MG TABLET PO SCH (12:04)
[2019-03-06] MEDS: METOPROLOL SUCCINATE 50 MG TAB.SR.24H PO SCH ×2 (12:04→21:07)
[2019-03-06 18:23] LABS: VANCOMYCIN,TROUGH 8.3 ug/mL (5.0-20.0)
[2019-03-06] MEDS: VANCOMYCIN HCL 750 MG in DEXTROSE 5%-WATER 250 ML IV SCH (19:04)
[2019-03-06] MEDS: NORMAL SALINE 1000 ML 1,000 ML IV PRN (21:07)
[2019-03-06] MEDS: LOSARTAN POTASSIUM 50 MG TABLET PO SCH (21:07)
[2019-03-07] MEDS: NORMAL SALINE 1000 ML 1,000 ML IV PRN (02:58)
[2019-03-07] MEDS: ENOXAPARIN SODIUM INJ 30 MG/0.3 ML DISP.SYRIN SUBCUT SCH (09:57)
[2019-03-07] MEDS: METOPROLOL SUCCINATE 50 MG TAB.SR.24H PO SCH ×2 (09:57→22:02)
[2019-03-07] MEDS: RALOXIFENE HCL 60 MG TABLET PO SCH (09:57)
--- NOTE | 2019-03-07 13:02 | PDOC PROGRESS REPORT ---
Subjective Progress Note for:: 03/07/19 Reason For Visit: LEFT LEG PAIN/INJURY 03/07/2019 Patient was admitted for left leg cellulitis. She has been having trouble now for over 8 weeks Physical Exam Vital Signs: Temp Pulse Resp BP Pulse Ox 97.7 F 54 L 19 141/88 H 98 03/07/19 09:00 03/07/19 09:00 03/07/19 09:00 03/07/19 09:00 03/07/19 09:00 Intake & Output 03/06/19 03/07/19 03/08/19 06:59 06:59 06:59 Intake Total 2470 3261 Balance 2470 3261 Weight 60 kg 61.2 kg General appearance: PRESENT: no acute distress Respiratory exam: PRESENT: clear to auscultation ellen. ABSENT: rales, rhonchi, wheezes Cardiovascular exam: PRESENT: RRR. ABSENT: diastolic murmur, rubs, systolic murmur Extremities exam: PRESENT: tenderness, other - Less redness around the ulcer, ulcer appears to be slightly less purulent. No longer any edema around the ulcer Neurological exam: PRESENT: alert, awake, oriented to person, oriented to place, oriented to time, oriented to situation, CN II-XII grossly intact. ABSENT: motor sensory deficit Psychiatric exam: PRESENT: appropriate affect, normal mood. ABSENT: homicidal ideation, suicidal ideation Results Laboratory Results: 03/05/19 04:46 03/05/19 04:46 03/04/19 19:55 Leg - Left Cellulitis Gram Stain - Final Impressions: Tibia/Fibula X-Ray 03/04/19 15:45 IMPRESSION: No acute findings. Assessment and Plan - Diagnosis (1) Cellulitis Qualifiers: Site of cellulitis: extremity Site of cellulitis of extremity: lower extremity Laterality: left Qualified Code(s): L03.116 - Cellulitis of left lower limb Is this a current diagnosis for this admission?: Yes (2) Hypertension Qualifiers: Is this a current diagnosis for this admission?: Yes - Plan Summary Summary: 03/04/2019 patient will be admitted to the hospital for wound care of her left lower leg. He has apparent cellulitis from an 8-week-old infection. Patient's only other comorbidity according to her is hypertension. Patient has been seen by general surgery and wound care will be addressed by general surgery. Will be treated with IV antibiotics 03/05/2019 Temperature 97 6 pulse 58 blood pressure slightly elevated 158/70 and 171/71 O2 sat 97% on room air wbcs 8000 Patient is up and ambulatory in the room We will continue IV vancomycin. Suspect it will take 72 hours to make a change Continue wound dressings as outlined by general surgery We will resume home meds 03/06/2019 There is a discrepancy with her home medications, patient is denying taking hydrochlorothiazide. Patient states that she takes her Toprol every 12 hours and not once daily Patient is currently on IV vancomycin for her cellulitis which appears to be improving. Wound culture is growing both gram-negative rods and gram-positive cocci, blood cultures are negative x24 hours Day 3 of IV vancomycin May be able to switch over to p.o. antibiotics tomorrow and possibly discharge. Lives alone at home 03/07/2019 And is pleased with her progress, is somewhat hesitant to go home too early since she has been dealing with this now for over 8 weeks. Patient continues to be afebrile. Patient's wound culture today is growing out Pseudomonas and enterococcus faecalis. Both appear to be sensitive to everything, she could be switched to pretty much drug of choice, please notice her allergies to antibiotics above. Clindamycin may be a good choice to DC her home on. This is day 4 of IV vancomycin. Wound care as well care recommended by general surgery is wet-to-dry dressings every 24 hours. Aloe up with wound care center once patient has been discharge - Time Time Spent with patient: 25-34 minutes
[2019-03-07] MEDS: VANCOMYCIN HCL 1,000 MG in DEXTROSE 5%-WATER 250 ML IV SCH (13:20)
[2019-03-07] MEDS: LOSARTAN POTASSIUM 50 MG TABLET PO SCH (22:02)
[2019-03-08] MEDS: METOPROLOL SUCCINATE 50 MG TAB.SR.24H PO SCH ×2 (09:45→22:27)
[2019-03-08] MEDS: ENOXAPARIN SODIUM INJ 30 MG/0.3 ML DISP.SYRIN SUBCUT SCH (10:04)
[2019-03-08 11:34] LABS: HEMATOCRIT 32.9 % (36.0-47.0); HEMOGLOBIN 11.1 g/dL (12.0-15.5); MEAN CORPUSCULAR HEMOGLOBIN 29.3 pg (27.0-33.4); MEAN CORPUSCULAR HGB CONC 33.8 g/dL (32.0-36.0); MEAN CORPUSCULAR VOLUME 87 fl (80-97); PLATELET COUNT 238 10^3/uL (150-450); RED CELL DISTRIBUTION WIDTH 13.7 % (11.5-14.0); WHITE BLOOD COUNT 6.1 10^3/uL (4.0-10.5)
[2019-03-08 11:59] LABS: ANION GAP 11 (5-19); BLOOD UREA NITROGEN 27 mg/dL (7-20); CALCIUM 9.2 mg/dL (8.4-10.2); CARBON DIOXIDE 27 mmol/L (22-30); CHLORIDE 98 mmol/L (98-107); GLUCOSE 88 mg/dL (75-110)
[2019-03-08] MEDS: VANCOMYCIN HCL 1,000 MG in DEXTROSE 5%-WATER 250 ML IV SCH (13:44)
--- NOTE | 2019-03-08 15:05 | PDOC PROGRESS REPORT ---
Subjective Progress Note for:: 03/08/19 Subjective:: The patient is an 89-year-old female with a past medical history of hypertension who was admitted 03/04/2019 for left lower leg cellulitis. Patient was seen on morning rounds. She was found resting in bed, comfortably, on room air. She was noted to be ambulatory with front wheel walker, on room air, just moments prior. She does report that her leg is improved, though, wound does continue to have slough and serous weeping. Patient reports that the erythema and edema are significantly better. She is concerned about her multiple antibiotic allergies and requests to start p.o. medication in hospital to ensure tolerance prior to discharge which is an understandable request. She otherwise denies fever, chills, chest pain, palpitations, dyspnea, abdominal pain, nausea vomiting and diarrhea. She has no other questions or concerns at this time. No concerns per nursing. Reason For Visit: LEFT LEG PAIN/INJURY Physical Exam Vital Signs: Temp Pulse Resp BP Pulse Ox 98.3 F 56 L 14 158/67 H 99 03/08/19 07:21 03/08/19 07:21 03/08/19 07:21 03/08/19 07:21 03/08/19 07:21 Intake & Output 03/07/19 03/08/19 03/09/19 06:59 06:59 06:59 Intake Total 3261 1413 Balance 3261 1413 Weight 61.2 kg 60.7 kg General appearance: PRESENT: no acute distress, cooperative, well-developed, well-nourished Head exam: PRESENT: atraumatic, normocephalic Eye exam: PRESENT: conjunctiva pink, EOMI, PERRLA. ABSENT: scleral icterus Ear exam: PRESENT: normal external ear exam Mouth exam: PRESENT: moist, tongue midline Respiratory exam: PRESENT: clear to auscultation ellen, symmetrical, unlabored. A BSENT: rales, rhonchi, wheezes Cardiovascular exam: PRESENT: RRR, +S1, +S2. ABSENT: diastolic murmur, rubs, systolic murmur Pulses: PRESENT: normal dorsalis pedis pul Vascular exam: PRESENT: normal capillary refill GI/Abdominal exam: PRESENT: normal bowel sounds, soft. ABSENT: distended, guarding, mass, organolmegaly, rebound, tenderness Rectal exam: PRESENT: deferred Extremities exam: PRESENT: full ROM. ABSENT: calf tenderness, clubbing, pedal edema Neurological exam: PRESENT: alert, awake, oriented to person, oriented to place, oriented to time, oriented to situation, CN II-XII grossly intact. ABSENT: motor sensory deficit Psychiatric exam: PRESENT: appropriate affect, normal mood. ABSENT: homicidal ideation, suicidal ideation Skin exam: PRESENT: dry, warm, other - Wound to anterior surface of left lower leg; measuring approximately 6 cm long x 4 cm wide. Central sloughing with serous drainage noted. A 1 cm erythematous border. No edema. ABSENT: cyan osis, rash Results Laboratory Results: 03/08/19 11:23 03/08/19 11:23 03/08/19 03/08/19 11:23 11:23 WBC 6.1 RBC 3.80 Hgb 11.1 L Hct 32.9 L MCV 87 MCH 29.3 MCHC 33.8 RDW 13.7 Plt Count 238 Sodium 136.4 L Potassium 4.0 Chloride 98 Carbon Dioxide 27 Anion Gap 11 BUN 27 H Creatinine 0.91 Est GFR ( Amer) > 60 Glucose 88 Calcium 9.2 03/04/19 19:55 Leg - Left Cellulitis Gram Stain - Final 03/04/19 19:55 Leg - Left Cellulitis Wound Culture - Final Pseudomonas Aeruginosa Enterococcus Faecalis(Group D) Alcaligenes Species Impressions: Tibia/Fibula X-Ray 03/04/19 15:45 IMPRESSION: No acute findings. Assessment and Plan - Diagnosis (1) Cellulitis Qualifiers: Site of cellulitis: extremity Site of cellulitis of extremity: lower extremity Laterality: left Qualified Code(s): L03.116 - Cellulitis of left lower limb Is this a current diagnosis for this admission?: Yes Plan: Blood cultures have no growth at 72 hours. Wound culture grew Pseudomonas, enterococcus, and alcaligenes species Patient was empirically placed on IV vancomycin; day #5. Per patient, she failed outpatient clindamycin and Keflex prior to her admission. She is noted to have penicillin, streptomycin, sulfa, and Cipro allergies. May consider discharge on Ceftin. We will continue IV vancomycin today, transition to p.o. Ceftin tomorrow, discharge following day if she continues to have clinical stability/improvement. Outpatient follow-up with wound care clinic. (2) Hypertension Qualifiers: Is this a current diagnosis for this admission?: Yes Plan: Adequately controlled blood pressure. Continue losartan, metoprolol, and hydrochlorothiazide. - Time Time Spent with patient: 35 or more minutes Medications reviewed and adjusted accordingly: Yes Anticipated discharge: Home with Homehealth Within: within 48 hours
[2019-03-08 15:26] LABS: APPEARANCE,URINE CLEAR; BILIRUBIN,URINE NEGATIVE (NEGATIVE); GLUCOSE, URINE NEGATIVE (NEGATIVE); KETONES,URINE NEGATIVE (NEGATIVE); LEUKOCYTE ESTERASE,URINE TRACE (NEGATIVE); NITRITE,URINE NEGATIVE (NEGATIVE); PROTEIN,URINE 100 mg/dL (NEGATIVE); URINE SPECIFIC GRAVITY 1.012; UROBILINOGEN,URINE NEGATIVE mg/dL (<2.0)
[2019-03-08 15:27] LABS: COLOR,URINE RED
[2019-03-08] MEDS: LOSARTAN POTASSIUM 50 MG TABLET PO SCH (22:27)
[2019-03-09] MEDS: ENOXAPARIN SODIUM INJ 30 MG/0.3 ML DISP.SYRIN SUBCUT SCH (11:03)
[2019-03-09] MEDS: HYDROCHLOROTHIAZIDE 25 MG TABLET PO SCH (11:07)
[2019-03-09] MEDS: METOPROLOL SUCCINATE 50 MG TAB.SR.24H PO SCH ×2 (11:07→22:51)
[2019-03-09] MEDS: CEFUROXIME 250 MG TABLET PO SCH ×2 (11:10→17:21)
--- NOTE | 2019-03-09 16:12 | PDOC PROGRESS REPORT ---
Subjective Progress Note for:: 03/09/19 Subjective:: The patient is an 89-year-old female with a past medical history of hypertension who was admitted 03/04/2019 for left lower leg cellulitis. Patient was seen on morning rounds. She was found resting in bed, comfortably, on room air. She does report that her leg is overall improved; no significant difference from yesterday. Does continue continue to have slough and serous weeping. Patient reports that the erythema and edema are significantly better. Received first dose of p.o. ceftin today w/o side effects; plan to d/c home on ceftin tomorrow if continues to tolerate well and wound remains stable. She otherwise denies fever, chills, chest pain, palpitations, dyspnea, abdominal pain, nausea, vomiting, and diarrhea. She has no other questions or concerns at this time. No concerns per nursing. Reason For Visit: LEFT LEG PAIN/INJURY Physical Exam Vital Signs: Temp Pulse Resp BP Pulse Ox 98.2 F 60 18 125/63 98 03/09/19 13:00 03/09/19 13:00 03/09/19 13:00 03/09/19 13:00 03/09/19 13:00 Intake & Output 03/08/19 03/09/19 03/10/19 06:59 06:59 06:59 Intake Total 1413 1006 356 Balance 1413 1006 356 Weight 60.7 kg 60.5 kg General appearance: PRESENT: no acute distress, cooperative, well-developed, well-nourished Head exam: PRESENT: atraumatic, normocephalic Eye exam: PRESENT: conjunctiva pink, EOMI, PERRLA. ABSENT: scleral icterus Ear exam: PRESENT: normal external ear exam Mouth exam: PRESENT: moist, tongue midline Respiratory exam: PRESENT: clear to auscultation ellen, symmetrical, unlabored. ABSENT: rales, rhonchi, wheezes Cardiovascular exam: PRESENT: RRR, +S1, +S2. ABSENT: diastolic murmur, rubs, systolic murmur Pulses: PRESENT: normal dorsalis pedis pul Vascular exam: PRESENT: normal capillary refill Rectal exam: PRESENT: deferred Extremities exam: PRESENT: full ROM. ABSENT: calf tenderness, clubbing, pedal edema Musculoskeletal exam: PRESENT: ambulatory Neurological exam: PRESENT: alert, awake, oriented to person, oriented to place, oriented to time, oriented to situation, CN II-XII grossly intact. ABSENT: motor sensory deficit Psychiatric exam: PRESENT: appropriate affect, normal mood. ABSENT: homicidal ideation, suicidal ideation Skin exam: PRESENT: dry, warm, other - Wound to anterior surface of left lower leg; measuring approximately 6 cm long x 4 cm wide. Central slough with serous drainage noted. No erythem or edema. Minimal grannulation tissue.. ABSENT: cyanosis, rash Results Laboratory Results: 03/08/19 11:23 03/08/19 11:23 Impressions: Tibia/Fibula X-Ray 03/04/19 15:45 IMPRESSION: No acute findings. Assessment and Plan - Diagnosis (1) Cellulitis Qualifiers: Site of cellulitis: extremity Site of cellulitis of extremity: lower extremity Laterality: left Qualified Code(s): L03.116 - Cellulitis of left lower limb Is this a current diagnosis for this admission?: Yes Plan: Blood cultures have no growth at 4 days. Wound culture grew Pseudomonas, enterococcus, and alcaligenes species Patient was empirically placed on IV vancomycin; received 6 days.. Per patient, she failed outpatient clindamycin and Keflex prior to her admission. She is noted to have penicillin, streptomycin, sulfa, and Cipro allergies. Have transitioned to p.o. Ceftin tomorrow, discharge tomorrow if she continues to toleratea medication well and has clinical stability/improvement of wound. Outpatient follow-up with wound care clinic. (2) Hypertension Qualifiers: Is this a current diagnosis for this admission?: Yes Plan: Adequately controlled blood pressure. Continue losartan, metoprolol, and hydrochlorothiazide. (3) Hyponatremia Is this a current diagnosis for this admission?: Yes Plan: Improved; no longer clinically significant. - Time Time Spent with patient: 25-34 minutes Medications reviewed and adjusted accordingly: Yes Anticipated discharge: Home with Homehealth Within: within 24 hours
[2019-03-09] MEDS: ACETAMINOPHEN 325 MG TABLET PO PRN (20:56)
[2019-03-09] MEDS: LOSARTAN POTASSIUM 50 MG TABLET PO SCH (22:51)
[2019-03-10 04:59] LABS: HEMATOCRIT 34.2 % (36.0-47.0); HEMOGLOBIN 11.5 g/dL (12.0-15.5); MEAN CORPUSCULAR HEMOGLOBIN 29.1 pg (27.0-33.4); MEAN CORPUSCULAR HGB CONC 33.7 g/dL (32.0-36.0); MEAN CORPUSCULAR VOLUME 86 fl (80-97); PLATELET COUNT 238 10^3/uL (150-450); RED BLOOD COUNT 3.97 10^6/uL (3.72-5.28); RED CELL DISTRIBUTION WIDTH 13.9 % (11.5-14.0)
[2019-03-10] MEDS: ENOXAPARIN SODIUM INJ 30 MG/0.3 ML DISP.SYRIN SUBCUT SCH (09:03)
[2019-03-10] MEDS: METOPROLOL SUCCINATE 50 MG TAB.SR.24H PO SCH (09:10)
[2019-03-10] MEDS: CEFUROXIME 250 MG TABLET PO SCH (09:10)
[2019-03-10] MEDS: HYDROCHLOROTHIAZIDE 25 MG TABLET PO SCH (09:10)
[2019-03-10 09:16] VITALS: BP 145/68
--- NOTE | 2019-03-10 14:50 | PDOC DISCHARGE SUMMARY ---
Impression - Admit/DC Date/PCP Admission Date/Primary Care Provider: 03/04/19 19:20 Discharge Date: 03/10/19 - Discharge Diagnosis (1) Cellulitis Is this a current diagnosis for this admission?: Yes (2) Hypertension Is this a current diagnosis for this admission?: Yes (3) Hyponatremia Is this a current diagnosis for this admission?: Yes - Additional Information Resuscitation Status: Full Code Discharge Diet: Regular Discharge Activity: Activity As Tolerated, Balance Activity w/Rest, Slowly Increase Activity Referrals: Wound Care [Provider Group] - 03/14/19 11:00 am SHANNAN CAO MD [ACTIVE STAFF] - (PER OFFICE STAFF DUE TO HOLIDAY THEY WILL CALL PATIENT WITH AN APPT. DATE AND TIME ) Prescriptions: Cefuroxime Axetil [Ceftin 250 mg Tablet] 250 mg PO BID #14 tablet Hydrocodone/Acetaminophen [[place] 5-325 mg Tablet] 1 tab PO Q6HP PRN #12 tablet PRN Reason: Home Medications: Ca Citrate/Mgox/Vit D3/B6/Min [Citracal Plus Tablet] 2 tab PO DAILY 03/05/19 Losartan/Hydrochlorothiazide [Hyzaar 100-25 Tablet] 1 tab PO DAILY 03/05/19 Metoprolol Succinate [Toprol XL 100 mg Tablet] 200 mg PO DAILY 03/05/19 Raloxifene HCl [Evista 60 mg Tablet] 60 mg PO DAILY 03/05/19 Sulindac 150 mg PO BIDP PRN 03/05/19 Acetaminophen [Tylenol 325 mg Tablet] 650 mg PO Q4HP PRN tablet 03/10/19 Cefuroxime Axetil [Ceftin 250 mg Tablet] 250 mg PO BID #14 tablet 03/10/19 Hydrocodone/Acetaminophen [[place] 5-325 mg Tablet] 1 tab PO Q6HP PRN #12 tablet 03/10/19 History of Present Illiness History of Present Illness: Per H&P by CHELY Kimbrough: HORTENSIA RUBIO is a 89 year old female asked me 2 months ago had a stick from her yard strike her in the left lower leg. Since then she has had a wound on the left lower leg and she has been going from her primary care doctor to the wound clinic with no resolution of her apparent infection. Tonight in the emergency room she comes in with what appears to be a cellulitis secondary to open wound. Patient has been seen by general surgery and they advised that the patient come in for IV antibiotics and wound care. She is allergic to several different antibiotics including Bactrim Cipro penicillin and streptomycin Also question of whether or not she is allergic to Keflex Hospital Course Hospital Course: The patient was admitted to the medical floor. She was empirically placed on IV vancomycin. Blood cultures have no growth to date and wound culture grew Pseudomonas, enterococcus and Alcaligenes species. Due to the patient's mu ltiple failed outpatient antibiotic allergies and outpatient failure of clindamycin and Keflex prior to her admission, she remained on IV vancomycin for 7 days. She was then transitioned to p.o. Ceftin and monitored for an additional day prior to discharge. Fortunately, she tolerated the Ceftin well, did not develop a fever, WBCs remain normal, and her wound appearance remained stable. Surgery was consulted; recommended continuing wet-to-dry dressing and outpatient follow-up after completion of IV antibiotic and discharge home. Her hypertension remains adequately controlled on her home medication regiment. The patient is discharged home in stable condition with home health services. She is advised to follow-up with her primary care provider within 1 week. She is instructed to follow-up with the wound care center within 2 weeks or sooner as needed. Instructed to complete her course of Ceftin. Take all other medications as prescribed. She is instructed to resume her previous wound care regimen of Santyl dressing changes daily until otherwise directed by wound care. Return to the emergency department as needed for concerning symptoms. Physical Exam Vital Signs: Temp Pulse Resp BP Pulse Ox 98.3 F 52 L 17 145/68 H 100 03/10/19 11:26 03/10/19 11:26 03/10/19 11:26 03/10/19 11:26 03/10/19 11:26 Intake & Output 03/09/19 03/10/19 03/11/19 06:59 06:59 06:59 Intake Total 1006 1453 Balance 1006 1453 Weight 60.5 kg 60.2 kg General appearance: PRESENT: no acute distress, well-developed, well-nourished Head exam: PRESENT: atraumatic, normocephalic Eye exam: PRESENT: conjunctiva pink, EOMI, PERRLA. ABSENT: scleral icterus Ear exam: PRESENT: normal external ear exam Mouth exam: PRESENT: moist, tongue midline Respiratory exam: PRESENT: clear to auscultation ellen. ABSENT: rales, rhonchi, wheezes Cardiovascular exam: PRESENT: RRR. ABSENT: diastolic murmur, rubs, systolic murmur Pulses: PRESENT: normal dorsalis pedis pul Vascular exam: PRESENT: normal capillary refill Rectal exam: PRESENT: deferred Extremities exam: PRESENT: full ROM. ABSENT: calf tenderness, clubbing, pedal edema Neurological exam: PRESENT: alert, awake, oriented to person, oriented to place, oriented to time, oriented to situation, CN II-XII grossly intact. ABSENT: motor sensory deficit Psychiatric exam: PRESENT: appropriate affect, normal mood. ABSENT: homicidal ideation, suicidal ideation Skin exam: PRESENT: dry, warm, other - Wound to anterior surface of left lower leg; measuring approximately 6 cm long x 4 cm wide. Central slough with serous drainage noted. No erythem or edema. Minimal grannulation tissue. ABSENT: cyanosis, rash Results Laboratory Results: WBC 7.0 10^3/uL (4.0-10.5) 03/10/19 04:40 RBC 3.97 10^6/uL (3.72-5.28) 03/10/19 04:40 Hgb 11.5 g/dL (12.0-15.5) L 03/10/19 04:40 Hct 34.2 % (36.0-47.0) L 03/10/19 04:40 MCV 86 fl (80-97) 03/10/19 04:40 MCH 29.1 pg (27.0-33.4) 03/10/19 04:40 MCHC 33.7 g/dL (32.0-36.0) 03/10/19 04:40 RDW 13.9 % (11.5-14.0) 03/10/19 04:40 Plt Count 238 10^3/uL (150-450) 03/10/19 04:40 Lymph % (Auto) 20.2 % (13-45) 03/05/19 04:46 [place] % (Auto) 12.5 % (3-13) 03/05/19 04:46 Eos % (Auto) 3.7 % (0-6) 03/05/19 04:46 Baso % (Auto) 0.8 % (0-2) 03/05/19 04:46 Absolute Neuts (auto) 5.0 10^3/uL (1.7-8.2) 03/05/19 04:46 Absolute Lymphs (auto) 1.6 10^3/uL (0.5-4.7) 03/05/19 04:46 Absolute Monos (auto) 1.0 10^3/uL (0.1-1.4) 03/05/19 04:46 Absolute Eos (auto) 0.3 10^3/uL (0.0-0.6) 03/05/19 04:46 Absolute Basos (auto) 0.1 10^3/uL (0.0-0.2) 03/05/19 04:46 Seg Neutrophils % 62.8 % (42-78) 03/05/19 04:46 PT 12.5 SEC (11.4-15.4) 03/04/19 16:20 INR 0.93 03/04/19 16:20 APTT 25.7 SEC (23.5-35.8) 03/05/19 04:46 Sodium 136.4 mmol/L (137-145) L 03/08/19 11:23 Potassium 4.0 mmol/L (3.6-5.0) 03/08/19 11:23 Chloride 98 mmol/L (98-107) 03/08/19 11:23 Carbon Dioxide 27 mmol/L (22-30) 03/08/19 11:23 Anion Gap 11 (5-19) 03/08/19 11:23 BUN 27 mg/dL (7-20) H 03/08/19 11:23 Creatinine 0.91 mg/dL (0.52-1.25) 03/08/19 11:23 Est GFR ( Amer) > 60 (>60) 03/08/19 11:23 Est GFR (MDRD) Non-Af 58 (>60) L 03/08/19 11:23 Glucose 88 mg/dL (75-110) 03/08/19 11:23 Calcium 9.2 mg/dL (8.4-10.2) 03/08/19 11:23 Phosphorus 4.5 mg/dL (2.5-4.5) 03/05/19 04:46 Magnesium 1.9 mg/dL (1.6-2.3) 03/05/19 04:46 Total Bilirubin 0.3 mg/dL (0.2-1.3) 03/04/19 16:20 Direct Bilirubin 0.1 mg/dL (0.0-0.4) 03/04/19 16:20 Neonat Total Bilirubin Not Reportable 03/04/19 16:20 Neonat Direct Bilirubin Not Reportable 03/04/19 16:20 Neonat Indirect Bili Not Reportable 03/04/19 16:20 AST 27 U/L (14-36) 03/04/19 16:20 ALT 23 U/L (<35) 03/04/19 16:20 Alkaline Phosphatase 61 U/L (38-126) 03/04/19 16:20 Total Protein 7.1 g/dL (6.3-8.2) 03/04/19 16:20 Albumin 4.0 g/dL (3.5-5.0) 03/04/19 16:20 Urine Color RED 03/08/19 13:23 Urine Appearance CLEAR 03/08/19 13:23 Urine pH 6.0 (5.0-9.0) 03/08/19 13:23 Ur Specific [place] 1.012 03/08/19 13:23 Urine Protein 100 mg/dL (NEGATIVE) H 03/08/19 13:23 Urine Glucose (UA) NEGATIVE mg/dL (NEGATIVE) 03/08/19 13:23 Urine Ketones NEGATIVE mg/dL (NEGATIVE) 03/08/19 13:23 Urine Blood LARGE (NEGATIVE) H 03/08/19 13:23 Urine Nitrite NEGATIVE (NEGATIVE) 03/08/19 13:23 Urine Bilirubin NEGATIVE (NEGATIVE) 03/08/19 13:23 Urine Urobilinogen NEGATIVE mg/dL (<2.0) 03/08/19 13:23 Ur Leukocyte Esterase TRACE (NEGATIVE) H 03/08/19 13:23 Urine WBC (Auto) 25 /HPF 03/08/19 13:23 Urine RBC (Auto) >182 /HPF 03/08/19 13:23 Squamous Epi Cells Auto 8 /HPF 03/08/19 13:23 Urine Ascorbic Acid NEGATIVE (NEGATIVE) 03/08/19 13:23 Time Trough Drawn 1735 03/06/19 17:35 Vancomycin Trough 8.3 ug/mL (5.0-20.0) 03/06/19 17:35 Impressions: Tibia/Fibula X-Ray 03/04/19 15:45 IMPRESSION: No acute findings. Plan Plan of Treatment: The patient is discharged home with home health nursing. She is instructed to follow-up with her primary care provider within 1 week. Follow-up with the wound care clinic within 2 weeks or sooner as needed. She is instructed to resume her previously recommended Santyl dressing changes. She is to complete her course of antibiotic therapy. Take all other medications as prescribed. She is encouraged to return to emergency department as needed for concerning symptoms. Time Spent: Greater than 30 Minutes Stroke Is this a Stroke Patient?: No Acute Heart Failure - Is this a Heart Failure Patient?: No
== END 2019-03-10 11:55 | disposition home or self-care (01) | DRG 603 ==
LOC: ER 14:16 → EH 19:20 → 5 21:03
PROVIDERS: ADMIT Hospitalist; ATTEND Hospitalist
DX: L03.116 Cellulitis of left lower limb (principal); E87.1 Hypo-osmolality and hyponatremia; I10 Essential (primary) hypertension; B96.5 Pseudomonas (aeruginosa) (mallei) (pseudomallei) as the cause of diseases classified elsewhere; S81.812A Laceration without foreign body, left lower leg, initial encounter; W22.8XXA Striking against or struck by other objects, initial encounter; B95.2 Enterococcus as the cause of diseases classified elsewhere; Y92.096 Garden or yard of other non-institutional residence as the place of occurrence of the external cause; Z88.0 Allergy status to penicillin; Z88.1 Allergy status to other antibiotic agents; Z90.49 Acquired absence of other specified parts of digestive tract; Z79.899 Other long term (current) drug therapy; Z79.82 Long term (current) use of aspirin; Z88.5 Allergy status to narcotic agent; Z88.2 Allergy status to sulfonamides
CPT/HCPCS: 36415; 80048; 80053; 80202; 81001; 83735; 84100; 85025; 85027; 85610; 85730; 87040; 87070; 87077; 87186; 87205; 96365; 96367; 96375; 99285; J0696; J1650; J2270; J2405; J3370; J3490; J7030; J7060

== ENCOUNTER → 2019-04-20 | Outpatient (CLI) | payer MEDICARE, OTHER ==
[2019-04-20 09:52] LABS: ABSOLUTE BASOPHILS # (AUTO) 0.1 10^3/uL (0.0-0.2); ABSOLUTE EOSINOPHILS # (AUTO) 0.5 10^3/uL (0.0-0.6); ABSOLUTE LYMPHOCYTES (AUTO) 1.6 10^3/uL (0.5-4.7); ABSOLUTE MONOCYTES (AUTO) 0.7 10^3/uL (0.1-1.4); BASOPHILS % (AUTO) 1.2 % (0-2); EOSINOPHILS % (AUTO) 6.9 % (0-6); HEMATOCRIT 38.6 % (36.0-47.0); HEMOGLOBIN 13.1 g/dL (12.0-15.5); LYMPHOCYTES % (AUTO) 23.1 % (13-45); MEAN CORPUSCULAR HEMOGLOBIN 29.1 pg (27.0-33.4); MEAN CORPUSCULAR HGB CONC 33.8 g/dL (32.0-36.0); MEAN CORPUSCULAR VOLUME 86 fl (80-97); MONOCYTES % (AUTO) 10.8 % (3-13); PLATELET COUNT 224 10^3/uL (150-450); RED BLOOD COUNT 4.49 10^6/uL (3.72-5.28); RED CELL DISTRIBUTION WIDTH 15.5 % (11.5-14.0); TOTAL CELLS COUNTED % (AUTO) 100 %; WHITE BLOOD COUNT 6.9 10^3/uL (4.0-10.5)
--- NOTE | 2019-04-20 10:02 | RADIOLOGY REPORT (SQ) ---
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 TECHNIQUE: Two radiographic images acquired of the left tibia and fibula to include the knee and ank le in at least one projection. LIMITATIONS: None. FINDINGS: MINERALIZATION: Normal. BONES: No acute fracture or dislocation. No worrisome bone lesions. SOFT TISSUES: No radiopaque foreign body. Scattered vascular calcifications pre OTHER: Wire fixation of the patella, stable. IMPRESSION: No evidence of acute bony abnormality. Stable postsurgical change from patellar fixation. TECHNICAL DOCUMENTATION: JOB ID: [id number] [employer]- All Rights Reserved Reading location - IP/workstation name: [email or web address]
[2019-04-20 10:21] LABS: ALBUMIN 4.3 g/dL (3.5-5.0); ALKALINE PHOSPHATASE 53 U/L (38-126); ANION GAP 10 (5-19); ASPARTATE AMINO TRANSFERASE 32 U/L (14-36); BILIRUBIN,TOTAL 0.5 mg/dL (0.2-1.3); BLOOD UREA NITROGEN 33 mg/dL (7-20); CALCIUM 10.3 mg/dL (8.4-10.2); CARBON DIOXIDE 28 mmol/L (22-30); CHLORIDE 99 mmol/L (98-107); GLUCOSE 97 mg/dL (75-110); POTASSIUM 4.8 mmol/L (3.6-5.0); TOTAL PROTEIN 7.3 g/dL (6.3-8.2)
[2019-04-20 10:23] LABS: C-REACTIVE PROTEIN < 5.0 mg/L (<10.0)
[2019-04-20 10:41] LABS: ERYTHROCYTE SEDIMENTATION RATE 5 mm/hr (0-30)
== END ==
LOC: WC 09:07
PROVIDERS: ATTEND Nurse Practitioner Family
DX: I87.312 Chronic venous hypertension (idiopathic) with ulcer of left lower extremity (principal); L97.222 Non-pressure chronic ulcer of left calf with fat layer exposed
CPT/HCPCS: 36415; 80053; 85025; 85652; 86140

== ENCOUNTER → 2019-10-04 | Outpatient (CLI) | payer MEDICARE, OTHER ==
[2019-10-04 09:57] LABS: ABSOLUTE BASOPHILS # (AUTO) 0.1 10^3/uL (0.0-0.2); ABSOLUTE EOSINOPHILS # (AUTO) 0.4 10^3/uL (0.0-0.6); ABSOLUTE LYMPHOCYTES (AUTO) 1.5 10^3/uL (0.5-4.7); ABSOLUTE MONOCYTES (AUTO) 0.7 10^3/uL (0.1-1.4); ABSOLUTE NEUT (AUTO) 5.5 10^3/uL (1.7-8.2); BASOPHILS % (AUTO) 0.7 % (0-2); EOSINOPHILS % (AUTO) 5.3 % (0-6); HEMATOCRIT 40.8 % (36.0-47.0); LYMPHOCYTES % (AUTO) 18.2 % (13-45); MEAN CORPUSCULAR HEMOGLOBIN 30.3 pg (27.0-33.4); MEAN CORPUSCULAR HGB CONC 34.2 g/dL (32.0-36.0); MEAN CORPUSCULAR VOLUME 89 fl (80-97); MONOCYTES % (AUTO) 8.5 % (3-13); PLATELET COUNT 197 10^3/uL (150-450); RED CELL DISTRIBUTION WIDTH 14.7 % (11.5-14.0); SEGMENTED NEUTROPHILS % (AUTO) 67.3 % (42-78); TOTAL CELLS COUNTED % (AUTO) 100 %; WHITE BLOOD COUNT 8.1 10^3/uL (4.0-10.5)
[2019-10-04 10:22] LABS: ALBUMIN 4.5 g/dL (3.5-5.0); ALKALINE PHOSPHATASE 56 U/L (38-126); ANION GAP 7 (5-19); ASPARTATE AMINO TRANSFERASE 33 U/L (14-36); BILIRUBIN,TOTAL 0.6 mg/dL (0.2-1.3); BLOOD UREA NITROGEN 36 mg/dL (7-20); CALCIUM 10.7 mg/dL (8.4-10.2); CARBON DIOXIDE 27 mmol/L (22-30); CHLORIDE 103 mmol/L (98-107); GLUCOSE 96 mg/dL (75-110); POTASSIUM 4.7 mmol/L (3.6-5.0); TOTAL PROTEIN 7.6 g/dL (6.3-8.2)
== END ==
LOC: OD 08:51
PROVIDERS: ATTEND Family Medicine
DX: I10 Essential (primary) hypertension (principal); Z79.899 Other long term (current) drug therapy
CPT/HCPCS: 36415; 80053; 85025